=== PATIENT | female | born 1960 ===

== ENCOUNTER 2021-12-24 11:11 | Emergency (ER) | payer OTHER, SELFPAY ==
[2021-12-24] VITALS (9 sets, daily range): BP systolic 145–184; BP diastolic 69–89; PULSE 64–94; RESP 18–23; TEMP 36.8; O2SAT 97–99; BMI 22.6
--- NOTE | 2021-12-24 12:00 | DI.RAD.S_ITS ---
PROCEDURE: XR CHEST 1V INDICATIONS: chest pain TECHNIQUE: One view of the chest was acquired. COMPARISON: None. FINDINGS: Surgical changes and devices: None. Lungs and pleura: Lungs are clear. No pleural effusions or pneumothorax. Mediastinum: Mediastinal contours appear normal. Heart size is normal. Bones and chest wall: No suspicious bony lesions. Overlying soft tissues appear unremarkable. IMPRESSION: No acute cardiopulmonary abnormality. Dictated by: Gigi Nieto M.D. on 12/24/2021 at 13:15 Approved by: Gigi Nieto M.D. on 12/24/2021 at 13:16
--- NOTE | 2021-12-24 12:08 | ED.BACK ---
HPI - Back Pain/Injury <ESSIE Perez - Last Filed: 12/24/21 17:57> General Chief Complaint: Back Pain/Injury Stated Complaint: r sided pain Time Seen by Provider: 12/24/21 12:07 Source: patient History of Present Illness HPI Narrative: 61-year-old female presents to the emergency department complaining of right elbow pain, elevated blood pressure, and ongoing symptoms for since her COVID infection, and low abdominal pain over her bladder. Patient denies any nausea vomiting, fever, shortness of breath, wheezing, difficulty breathing, weakness, altered mental status, history of blood clots, headache, or other. She endorses feeling fatigued since her COVID infection. 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 The she states that she is having a hard time having the energy to complete her shift. She denies any sensation changes to her extremities, denies any wounds, denies dysuria, hematuria, abnormal bowel movements. Related Data Previous Rx's Medication Instructions Recorded ibuprofen 600 mg tablet 600 mg PO Q6H PRN #20 tab 12/24/21 methocarbamol 500 mg tablet 500 mg PO TID PRN #20 tab 12/24/21 nitrofurantoin 100 mg PO BID 5 Days #10 cap 12/24/21 monohydrate/macrocrystals 100 mg capsule (Macrobid) phenazopyridine 100 mg tablet 100 mg PO TID PRN #7 tab 12/24/21 (Pyridium) Allergies Allergy/AdvReac Type Severity Reaction Status Date / Time No Known Drug Allergies Allergy Verified 12/24/21 11:23 Review of Systems <ESSIE Perez - Last Filed: 12/24/21 17:57> Review of Systems Narrative: General: denies fever, chills, malaise, sweats, endorses having fatigue Head/Neck: denies headache, neck pain, dizziness Eyes: denies visual changes, eye pain Cardio: denies chest pain, palpitations, edema Respiratory: denies dyspnea, cough, orthopnea GI: Endorses lower abdominal pain, denies nausea, vomiting, or diarrhea : denies dysuria, hematuria, urinary retention, frequency or incontinence but does complain of lower abdominal pain over her bladder MSK: denies joint pain, muscle weakness Skin: denies rash, itching, skin lesions or other Neuro: denies numbness, tingling Patient History <ESSIE Perez - Last Filed: 12/24/21 17:57> Social History Smoking Status: Never smoker Smoking Status: Never smoker Substance Use Type: does not use Exam <ESSIE Perez - Last Filed: 12/24/21 17:57> Narrative Exam Narrative: Independently reviewed vitals signs and nursing notes. General: Cooperative, comfortable, in no acute distress, well developed and well groomed Head/Neck: Normal visual inspection and supple, atraumatic, no JVD or lymphadenopathy. Normal facial exam Eyes: Pupils equal round and reactive, EOMI, conjunctiva normal, no scleral icterus or injections Nose: External nose normal, nares patent, no rhinorrhea, without purulent drainage Mouth/Throat: uvula midline, moist mucus membranes Cardio: Regular rate and rhythm, no peripheral edema, warm extremities Respiratory: Normal respiratory effort, able to speak in complete sentences without audible wheezing, stridor, or rales. No retractions. GI: Abdomen soft, nontender to palpation x4 quadrants, nondistended, no masses or exquisite tenderness with exam, no flank tenderness MSK: Moves all extremities, neurovascularly intact, right arm with tenderness over the medial epicondyle, no local erythema, edema, discoloration Skin: Normal capillary refill, no rash Neuro: Normal speech and cognition, normal gait, A&O x3, tone normal, moves all extremities Psych: Mental status is grossly normal, speech is clear, congruent mood, normal affect Initial Vital Signs Initial Vital Signs: Vital Signs Temperature 98.2 F 12/24/21 11:23 Pulse Rate 94 H 12/24/21 11:23 Respiratory Rate 18 12/24/21 11:23 Blood Pressure 184/89 H 12/24/21 11:23 Pulse Oximetry 98 12/24/21 11:23 <Juan Smith DO - Last Filed: 12/24/21 18:01> Initial Vital Signs Initial Vital Signs: Vital Signs Temperature 98.2 F 12/24/21 11:23 Pulse Rate 94 H 12/24/21 11:23 Respiratory Rate 18 12/24/21 11:23 Blood Pressure 184/89 H 12/24/21 11:23 Pulse Oximetry 98 12/24/21 11:23 Course <ESSIE Perez - Last Filed: 12/24/21 17:57> Orders Ordered: ED Orders 12/24/21 11:00 UA Complete [Urinalysis and Microscopic] Stat Urine Culture Stat 12/24/21 11:30 EKG-12 Lead Stat 12/24/21 11:40 Complete Blood Count AUTO DIFF Stat Comprehensive Metabolic Panel Stat D Dimer Stat Lipase Stat Magnesium Stat Procalcitonin Stat Troponin & CK Cardiac Panel Stat 12/24/21 11:50 COVID19 -Nasal swab/Pre-Proc Stat 12/24/21 12:00 XR chest 1V Stat Discontinued Medications Sodium Chloride (Normal Saline 0.9%) 1,000 mls @ 1,000 mls/hr IV BOLUS ONE Stop: 12/24/21 13:40 Last Infusion: 12/24/21 14:41 Dose: 0 mls/hr Documented by: Admin: 12/24/21 13:23 Dose: 1,000 mls/hr Documented by: NORIS Ketorolac Tromethamine (Ketorolac 30 Mg/Ml Vial) 15 mg IV NOW ONE Stop: 12/24/21 13:58 Last Admin: 12/24/21 14:39 Dose: 15 mg Documented by: AVE Methocarbamol (Methocarbamol 500 Mg Tablet) 500 mg PO NOW ONE Stop: 12/24/21 13:58 Last Admin: 12/24/21 14:39 Dose: 500 mg Documented by: AVE Nitrofurantoin Macrocrystals (Nitrofurantoin Er 100 Mg Capsule) 100 mg PO NOW ONE Stop: 12/24/21 14:47 Last Admin: 12/24/21 14:51 Dose: 100 mg Documented by: SATHISH Phenazopyridine HCl (Phenazopyridine 100 Mg Tablet) 100 mg PO NOW ONE Stop: 12/24/21 14:47 Last Admin: 12/24/21 14:51 Dose: 100 mg Documented by: SATHISH Vital Signs Vital signs: Vital Signs - 8 hr 12/24/21 11:23 12/24/21 11:50 12/24/21 12:00 Temperature 98.2 F Pulse Rate 94 H 86 84 Respiratory Rate 18 20 19 Blood Pressure 184/89 H Pulse Oximetry 98 99 99 12/24/21 12:30 12/24/21 13:00 12/24/21 13:25 Temperature Pulse Rate 78 72 68 Respiratory Rate 22 20 18 Blood Pressure 145/80 H Pulse Oximetry 98 99 98 12/24/21 13:30 12/24/21 14:00 12/24/21 14:30 Temperature Pulse Rate 69 71 64 Respiratory Rate 21 23 20 Blood Pressure 159/69 H 171/86 H 172/83 H Pulse Oximetry 97 98 99 <Juan Smith DO - Last Filed: 12/24/21 18:01> Orders Ordered: ED Orders 12/24/21 11:00 UA Complete [Urinalysis and Microscopic] Stat Urine Culture Stat 12/24/21 11:30 EKG-12 Lead Stat 12/24/21 11:40 Complete Blood Count AUTO DIFF Stat Comprehensive Metabolic Panel Stat D Dimer Stat Lipase Stat Magnesium Stat Procalcitonin Stat Troponin & CK Cardiac Panel Stat 12/24/21 11:50 COVID19 -Nasal swab/Pre-Proc Stat 12/24/21 12:00 XR chest 1V Stat Discontinued Medications Sodium Chloride (Normal Saline 0.9%) 1,000 mls @ 1,000 mls/hr IV BOLUS ONE Stop: 12/24/21 13:40 Last Infusion: 12/24/21 14:41 Dose: 0 mls/hr Documented by: Admin: 12/24/21 13:23 Dose: 1,000 mls/hr Documented by: NORIS Ketorolac Tromethamine (Ketorolac 30 Mg/Ml Vial) 15 mg IV NOW ONE Stop: 12/24/21 13:58 Last Admin: 12/24/21 14:39 Dose: 15 mg Documented by: AVE Methocarbamol (Methocarbamol 500 Mg Tablet) 500 mg PO NOW ONE Stop: 12/24/21 13:58 Last Admin: 12/24/21 14:39 Dose: 500 mg Documented by: AVE Nitrofurantoin Macrocrystals (Nitrofurantoin Er 100 Mg Capsule) 100 mg PO NOW ONE Stop: 12/24/21 14:47 Last Admin: 12/24/21 14:51 Dose: 100 mg Documented by: SATHISH Phenazopyridine HCl (Phenazopyridine 100 Mg Tablet) 100 mg PO NOW ONE Stop: 12/24/21 14:47 Last Admin: 12/24/21 14:51 Dose: 100 mg Documented by: SATHISH Vital Signs Vital signs: Vital Signs - 8 hr 12/24/21 11:23 12/24/21 11:50 12/24/21 12:00 Temperature 98.2 F Pulse Rate 94 H 86 84 Respiratory Rate 18 20 19 Blood Pressure 184/89 H Pulse Oximetry 98 99 99 12/24/21 12:30 12/24/21 13:00 12/24/21 13:25 Temperature Pulse Rate 78 72 68 Respiratory Rate 22 20 18 Blood Pressure 145/80 H Pulse Oximetry 98 99 98 12/24/21 13:30 12/24/21 14:00 12/24/21 14:30 Temperature Pulse Rate 69 71 64 Respiratory Rate 21 23 20 Blood Pressure 159/69 H 171/86 H 172/83 H Pulse Oximetry 97 98 99 MDM - Back Pain/Injury <NIKKO ePrezP - Last Filed: 12/24/21 17:57> Lab Data Result diagrams: 12/24/21 11:40 12/24/21 11:40 Labs: Lab Results 12/24/21 12/24/21 12/24/21 Range/Units 11:00 11:40 11:40 WBC 6.7 (4.5-11.0) X10^3/uL RBC 4.56 (4.0-5.2) X10^6/uL Hgb 13.1 (12.0-16.0) g/dL Hct 39.5 (36-46) % MCV 86.5 (80-100) fL MCH 28.7 (26-34) PG MCHC 33.2 (30-36) % RDW 12.2 (11.6-14.8) % Plt Count 343 (150-400) X10^3/uL Neut % (Auto) 78.9 H (50-75) % Lymph % (Auto) 13.9 L (25-40) % Mcpherson % (Auto) 4.7 (3-14) % Eos % (Auto) 1.6 L (2-4) % Baso % (Auto) 0.9 (0-2) % Neut # (Auto) 5300 (1678-1041) /uL Lymph # (Auto) 900 L (2753-0686) /uL Mcpherson # (Auto) 300 (0-900) /uL Eos # (Auto) 100 (0-450) /uL Baso # (Auto) 100 (0-100) /uL D-Dimer (<230) ng/mL Sodium 136 L (137-145) mmol/L Potassium 4.0 (3.4-5.1) mmol/L Chloride 104 (98-107) mmol/L Carbon Dioxide 26 (22-32) mmol/L BUN 20 H (7-17) mg/dL Creatinine 0.54 (0.52-1.04) mg/dL Estimated GFR > 60.0 (>60) mL/min BUN/Creatinine Ratio 37.0 H (6-22) Glucose 170 H (80-110) mg/dL Calcium 9.5 (8.4-10.2) mg/dL Magnesium 1.6 (1.6-2.3) mg/dL Total Bilirubin 0.4 (0.2-1.3) mg/dL AST 42 H (14-36) IU/L ALT 26 (<35) IU/L Alkaline Phosphatase 59 (38-126) U/L Total Creatine Kinase 65 (30-135) U/L CK-MB (CK-2) TNP CK-MB (CK-2) Rel Index TNP Troponin I < 0.012 (0.01-0.034) ng/mL Total Protein 7.1 (6.3-8.2) g/dL Albumin 4.3 (3.5-5.0) g/dL Globulin 2.8 (1.7-4.1) g/dL Albumin/Globulin Ratio 1.5 (1.0-2.8) Lipase 44 (23-300) U/L Procalcitonin (<0.5) ng/mL Urine Color Yellow Urine Appearance Clear Urine pH 7.0 (4.5-8.0) Ur Specific [place] 1.010 (1.000-1.035) Urine Protein Negative (Negative) Urine Glucose (UA) Trace H (Negative) g/dL Urine Ketones Negative (NEGATIVE) Urine Occult Blood Negative (Negative) Urine Nitrate Negative (Negative) Urine Bilirubin Negative (NEGATIVE) Urine Urobilinogen 0.2 (0.2) E.U./dL Ur Leukocyte Esterase 1+ H (NEGATIVE) Urine RBC None seen (0-5/HPF) Urine WBC 1-5/hpf (0-5/HPF) Ur Squamous Epith Cells 0-1 /hpf (0-5/HPF) Urine Bacteria Few (2-10) H (None) Ur Culture Indicated? Specimen cultured SARS-CoV-2 (PCR) (Negative) 12/24/21 12/24/21 12/24/21 Range/Units 11:40 11:40 11:50 WBC (4.5-11.0) X10^3/uL RBC (4.0-5.2) X10^6/uL Hgb (12.0-16.0) g/dL Hct (36-46) % MCV (80-100) fL MCH (26-34) PG MCHC (30-36) % RDW (11.6-14.8) % Plt Count (150-400) X10^3/uL Neut % (Auto) (50-75) % Lymph % (Auto) (25-40) % Mcpherson % (Auto) (3-14) % Eos % (Auto) (2-4) % Baso % (Auto) (0-2) % Neut # (Auto) (6098-5786) /uL Lymph # (Auto) (3922-6701) /uL Mcpherson # (Auto) (0-900) /uL Eos # (Auto) (0-450) /uL Baso # (Auto) (0-100) /uL D-Dimer 238 H (<230) ng/mL Sodium (137-145) mmol/L Potassium (3.4-5.1) mmol/L Chloride (98-107) mmol/L Carbon Dioxide (22-32) mmol/L BUN (7-17) mg/dL Creatinine (0.52-1.04) mg/dL Estimated GFR (>60) mL/min BUN/Creatinine Ratio (6-22) Glucose (80-110) mg/dL Calcium (8.4-10.2) mg/dL Magnesium (1.6-2.3) mg/dL Total Bilirubin (0.2-1.3) mg/dL AST (14-36) IU/L ALT (<35) IU/L Alkaline Phosphatase (38-126) U/L Total Creatine Kinase (30-135) U/L CK-MB (CK-2) CK-MB (CK-2) Rel Index Troponin I (0.01-0.034) ng/mL Total Protein (6.3-8.2) g/dL Albumin (3.5-5.0) g/dL Globulin (1.7-4.1) g/dL Albumin/Globulin Ratio (1.0-2.8) Lipase (23-300) U/L Procalcitonin < 0.03 (<0.5) ng/mL Urine Color Urine Appearance Urine pH (4.5-8.0) Ur Specific [place] (1.000-1.035) Urine Protein (Negative) Urine Glucose (UA) (Negative) g/dL Urine Ketones (NEGATIVE) Urine Occult Blood (Negative) Urine Nitrate (Negative) Urine Bilirubin (NEGATIVE) Urine Urobilinogen (0.2) E.U./dL Ur Leukocyte Esterase (NEGATIVE) Urine RBC (0-5/HPF) Urine WBC (0-5/HPF) Ur Squamous Epith Cells (0-5/HPF) Urine Bacteria (None) Ur Culture Indicated? SARS-CoV-2 (PCR) Negative (Negative) Imaging Data Chest x-ray: Radiologist's Impression: PROCEDURE:? XR CHEST 1V ? INDICATIONS:? chest pain ? TECHNIQUE:? One view of the chest was acquired.? ? COMPARISON:? None. ? FINDINGS:? ? Surgical changes and devices:? None.? ? Lungs and pleura:? Lungs are clear.? No pleural effusions or pneumothorax.? ? Mediastinum:? Mediastinal contours appear normal.? Heart size is normal.? ? Bones and chest wall:? No suspicious bony lesions.? Overlying soft tissues appear unremarkable.? ? IMPRESSION:? No acute cardiopulmonary abnormality. ? ? Dictated by: Gigi Nieto M.D. on 12/24/2021 at 13:15 ? ? Approved by: Gigi Nieto M.D. on 12/24/2021 at 13:16 ? [facility] Narrative Medical decision making narrative: This is a 61-year-old female presents to the emergency department [place] [employer] after she went in for evaluation of her right elbow pain they checked her blood pressure and it was elevated in she was told to go to the emergency department. Patient states she used to be on antihypertensives in the past but she is no longer. She does not remember which medication was that she used to take because it has been many years. Patient also complains of ongoing fatigue since her COVID infection. Lab work overall was mostly unremarkable. Patient does not have a leukocytosis, D-dimer was just barely above baseline at 2:38 a.m. the patient endorses being slightly dehydrated. She was given 1 L of fluid which helped her symptom of fatigue. No like Tigist abnormalities, liver enzymes were grossly normal except mild elevation AST to 42, cardiac enzymes were negative, lipase 44, procalcitonin less than 0.03. UA obtained for patient's complaint of low abdominal pain showing 1+ leukocyte and few bacteria. Opted to treat her with nitrofurantoin because she has symptoms. Patient is otherwise well, afebrile, improved after 1 L of normal saline, methocarbamol and Toradol. EKG independently reviewed by Dr. Smith and reveals normal sinus rhythm at [79] bpm with regular axis and intervals. No STEMI, ST segment changes, arrhythmia, or acute ischemic changes. Encouraged patient to have close [place] and follow-up regarding her blood pressure. Patient understands this and will return to the emergency department if she has any worsening of her symptoms. She was encouraged to rest, treat her symptoms with NSAIDs, Tylenol, hydration and good nutrition. Patient is appropriate and amenable to discharge home. Vital signs are stable on repeat examination is unremarkable. Patient has been informed of results. Patient has been given strict return to ER precautions for any new or worsening symptoms. Patient understands to follow up closely with outpatient providers as instructed. Patient understands plan and agrees to discharge home. All questions and concerns answered at this time. <Juan Smith, DO - Last Filed: 12/24/21 18:01> Lab Data Labs: Lab Results 12/24/21 12/24/21 12/24/21 Range/Units 11:00 11:40 11:40 WBC 6.7 (4.5-11.0) X10^3/uL RBC 4.56 (4.0-5.2) X10^6/uL Hgb 13.1 (12.0-16.0) g/dL Hct 39.5 (36-46) % MCV 86.5 (80-100) fL MCH 28.7 (26-34) PG MCHC 33.2 (30-36) % RDW 12.2 (11.6-14.8) % Plt Count 343 (150-400) X10^3/uL Neut % (Auto) 78.9 H (50-75) % Lymph % (Auto) 13.9 L (25-40) % Mcpherson % (Auto) 4.7 (3-14) % Eos % (Auto) 1.6 L (2-4) % Baso % (Auto) 0.9 (0-2) % Neut # (Auto) 5300 (0271-0822) /uL Lymph # (Auto) 900 L (7980-7308) /uL Mcpherson # (Auto) 300 (0-900) /uL Eos # (Auto) 100 (0-450) /uL Baso # (Auto) 100 (0-100) /uL D-Dimer (<230) ng/mL Sodium 136 L (137-145) mmol/L Potassium 4.0 (3.4-5.1) mmol/L Chloride 104 (98-107) mmol/L Carbon Dioxide 26 (22-32) mmol/L BUN 20 H (7-17) mg/dL Creatinine 0.54 (0.52-1.04) mg/dL Estimated GFR > 60.0 (>60) mL/min BUN/Creatinine Ratio 37.0 H (6-22) Glucose 170 H (80-110) mg/dL Calcium 9.5 (8.4-10.2) mg/dL Magnesium 1.6 (1.6-2.3) mg/dL Total Bilirubin 0.4 (0.2-1.3) mg/dL AST 42 H (14-36) IU/L ALT 26 (<35) IU/L Alkaline Phosphatase 59 (38-126) U/L Total Creatine Kinase 65 (30-135) U/L CK-MB (CK-2) TNP CK-MB (CK-2) Rel Index TNP Troponin I < 0.012 (0.01-0.034) ng/mL Total Protein 7.1 (6.3-8.2) g/dL Albumin 4.3 (3.5-5.0) g/dL Globulin 2.8 (1.7-4.1) g/dL Albumin/Globulin Ratio 1.5 (1.0-2.8) Lipase 44 (23-300) U/L Procalcitonin (<0.5) ng/mL Urine Color Yellow Urine Appearance Clear Urine pH 7.0 (4.5-8.0) Ur Specific [place] 1.010 (1.000-1.035) Urine Protein Negative (Negative) Urine Glucose (UA) Trace H (Negative) g/dL Urine Ketones Negative (NEGATIVE) Urine Occult Blood Negative (Negative) Urine Nitrate Negative (Negative) Urine Bilirubin Negative (NEGATIVE) Urine Urobilinogen 0.2 (0.2) E.U./dL Ur Leukocyte Esterase 1+ H (NEGATIVE) Urine RBC None seen (0-5/HPF) Urine WBC 1-5/hpf (0-5/HPF) Ur Squamous Epith Cells 0-1 /hpf (0-5/HPF) Urine Bacteria Few (2-10) H (None) Ur Culture Indicated? Specimen cultured SARS-CoV-2 (PCR) (Negative) 12/24/21 12/24/21 12/24/21 Range/Units 11:40 11:40 11:50 WBC (4.5-11.0) X10^3/uL RBC (4.0-5.2) X10^6/uL Hgb (12.0-16.0) g/dL Hct (36-46) % MCV (80-100) fL MCH (26-34) PG MCHC (30-36) % RDW (11.6-14.8) % Plt Count (150-400) X10^3/uL Neut % (Auto) (50-75) % Lymph % (Auto) (25-40) % Mcpherson % (Auto) (3-14) % Eos % (Auto) (2-4) % Baso % (Auto) (0-2) % Neut # (Auto) (5260-6675) /uL Lymph # (Auto) (8501-2686) /uL Mcpherson # (Auto) (0-900) /uL Eos # (Auto) (0-450) /uL Baso # (Auto) (0-100) /uL D-Dimer 238 H (<230) ng/mL Sodium (137-145) mmol/L Potassium (3.4-5.1) mmol/L Chloride (98-107) mmol/L Carbon Dioxide (22-32) mmol/L BUN (7-17) mg/dL Creatinine (0.52-1.04) mg/dL Estimated GFR (>60) mL/min BUN/Creatinine Ratio (6-22) Glucose (80-110) mg/dL Calcium (8.4-10.2) mg/dL Magnesium (1.6-2.3) mg/dL Total Bilirubin (0.2-1.3) mg/dL AST (14-36) IU/L ALT (<35) IU/L Alkaline Phosphatase (38-126) U/L Total Creatine Kinase (30-135) U/L CK-MB (CK-2) CK-MB (CK-2) Rel Index Troponin I (0.01-0.034) ng/mL Total Protein (6.3-8.2) g/dL Albumin (3.5-5.0) g/dL Globulin (1.7-4.1) g/dL Albumin/Globulin Ratio (1.0-2.8) Lipase (23-300) U/L Procalcitonin < 0.03 (<0.5) ng/mL Urine Color Urine Appearance Urine pH (4.5-8.0) Ur Specific [place] (1.000-1.035) Urine Protein (Negative) Urine Glucose (UA) (Negative) g/dL Urine Ketones (NEGATIVE) Urine Occult Blood (Negative) Urine Nitrate (Negative) Urine Bilirubin (NEGATIVE) Urine Urobilinogen (0.2) E.U./dL Ur Leukocyte Esterase (NEGATIVE) Urine RBC (0-5/HPF) Urine WBC (0-5/HPF) Ur Squamous Epith Cells (0-5/HPF) Urine Bacteria (None) Ur Culture Indicated? SARS-CoV-2 (PCR) Negative (Negative) Discharge Plan Departure Patient Disposition: Home Clinical Impression: Post-COVID syndrome UTI (urinary tract infection) Qualifiers: Urinary tract infection type: acute cystitis Hematuria presence: without hematuria Qualified Code(s): N30.00 - Acute cystitis without hematuria Epicondylitis elbow, medial Qualifiers: Laterality: right Qualified Code(s): M77.01 - Medial epicondylitis, right elbow Instructions: Medial Epicondylitis, Acute Cystitis, Chronic Fatigue Syndrome Activity Restrictions/Additional Instructions: *You have been diagnosed with a bladder infection and post-covid fatigue syndrome. [place] to evaluate how your symptoms have improved or worsened. If your symptoms only worsen, please return to the emergency department for another evaluation. We did not find any dangerous causes to your pain symptoms today. Please try stay hydrated any food. You may take ibuprofen every 6-8 hours starting tomorrow for your right elbow pain. Please limit the use of it to help the pain improve. May use an Raul wrap to wrap it if that is helpful. Ice, rest and Tylenol will help you feel better as well. *What to do: *Please continue to take your regular medications as directed. [ x] New medication prescriptions sent to your pharmacy: [[facility]] [ ] New medication written as a paper prescription [ ] No new medications given *Please follow up with your primary care provider in 2-3 days, call for an appointment. Let them know you were seen in the Emergency Department and that we ask that you be seen in follow up. We will electronically transmit a record of today's note if your PCP is in our system *If you do not have a primary care provider please contact the [facility] Resource line at [phone]. They will ask some questions about your medical history and help get you set up with a doctor in the community. *Return to Emergency Department if you should have any new, worsening or concerning symptoms, such as [fever greater than 101F, chills, worsening pain, persistent vomiting or other bothersome symptoms] Prescriptions: New nitrofurantoin monohyd/m-cryst [Macrobid] 100 mg capsule 100 mg PO BID 5 Days Qty: 10 0RF Rx Instructions: must administer with a meal/food methocarbamol 500 mg tablet 500 mg PO TID PRN (Reason: muscle pain) Qty: 20 0RF phenazopyridine [Pyridium] 100 mg tablet 100 mg PO TID PRN (Reason: pain) Qty: 7 0RF ibuprofen 600 mg tablet 600 mg PO Q6H PRN (Reason: pain) Qty: 20 0RF Stand Alone Forms: Work Release Note <Juan Smith, DO - Last Filed: 12/24/21 18:01> Cosign ED Attending Cosignature Attestation: Dr Smith Co-Sign Statement: I was available for consultation during this patient's emergency department visit. This chart is signed by myself for administrative purposes only. I did not have direct contact with this patient during this visit. They were seen independently by the [facility].
[2021-12-24 12:34] LABS: COVID19 -Nasal RAPID Negative (Negative)
[2021-12-24 12:54] LABS: Add Manual Diff / Slide Review NO; Basophils Absolute Auto 100 /uL (0-100); Basophils Percent Auto 0.9 % (0-2); Eosinophils Absolute Auto 100 /uL (0-450); Eosinophils Percent Auto 1.6 % (2-4); Hematocrit 39.5 % (36-46); Hemoglobin 13.1 g/dL (12.0-16.0); Lymphocytes Absolute Auto 900 /uL (1100-4500); Lymphocytes Percent Auto 13.9 % (25-40); Mean Corpuscular HGB Conc 33.2 % (30-36); Mean Corpuscular Hemoglobin 28.7 PG (26-34); Mean Corpuscular Volume 86.5 fL (80-100); Monocytes Absolute Auto 300 /uL (0-900); Monocytes Percent Auto 4.7 % (3-14); Neutrophils Absolute Auto 5300 /uL (1500-7000); Neutrophils Percent Auto 78.9 % (50-75); Platelet Count 343 X10^3/uL (150-400); Red Blood Cell Count 4.56 X10^6/uL (4.0-5.2); Red Cell Distribution Width 12.2 % (11.6-14.8); White Blood Cell Count 6.7 X10^3/uL (4.5-11.0)
[2021-12-24 12:56] LABS: Appearance Urine UA CLEAR; Bilirubin Urine UA NEGATIVE (NEGATIVE); Color Urine UA YELLOW; Glucose Urine UA TRACE g/dL (Negative); Ketones Urine UA NEGATIVE (NEGATIVE); Leukocyte Esterase Urine UA 1+ (NEGATIVE); Nitrite Urine UA NEGATIVE (Negative); Occult Blood Urine UA NEGATIVE (Negative); Protein Urine UA NEGATIVE (Negative); Urobilinogen Urine UA 0.2 E.U./dL (0.2)
[2021-12-24 12:59] LABS: D Dimer 238 ng/mL (<230)
[2021-12-24 13:02] LABS: Alanine Aminotransferase 26 IU/L (<35); Albumin 4.3 g/dL (3.5-5.0); Albumin Globulin Ratio 1.5 (1.0-2.8); Alkaline Phosphatase 59 U/L (38-126); Aspartate Aminotransferase 42 IU/L (14-36); Bilirubin Total 0.4 mg/dL (0.2-1.3); Blood Urea Nitrogen 20 mg/dL (7-17); Calcium 9.5 mg/dL (8.4-10.2); Carbon Dioxide 26 mmol/L (22-32); Chloride 104 mmol/L (98-107); Creatine Kinase 65 U/L (30-135); Estimated Glomerular Filt Rate > 60.0 mL/min (>60); Globulin 2.8 g/dL (1.7-4.1); Glucose 170 mg/dL (80-110); HEMOLYSIS 17 (0-50); Lipase 44 U/L (23-300); Magnesium 1.6 mg/dL (1.6-2.3); Sodium 136 mmol/L (137-145); Total Protein 7.1 g/dL (6.3-8.2)
[2021-12-24 13:12] LABS: Troponin I < 0.012 ng/mL (0.01-0.034)
[2021-12-24] MEDS: SODIUM CHLORIDE 0.9% 1,000 ML 1000 ML IV (13:23)
[2021-12-24 13:28] LABS: Bacteria Urine Few (2-10); Culture Indicated Urine Specimen Cultured; RBC Urine None Seen (0-5/HPF); Squamous Epithelial Cell Urine 0-1 /HPF (0-5/HPF); WBC Urine 1-5/HPF (0-5/HPF)
[2021-12-24 13:42] LABS: Procalcitonin < 0.03 ng/mL (<0.5)
[2021-12-24] MEDS: methocarbamoL 500 MG TABLET PO (14:39)
[2021-12-24] MEDS: KETOROLAC 30 MG/ML VIAL 15 MG IV (14:39)
[2021-12-24] MEDS: PHENAZOPYRIDINE 100 MG TABLET PO (14:51)
[2021-12-24] MEDS: NITROFURANTOIN ER 100 MG CAPSULE PO (14:51)
== END 2021-12-24 15:04 | disposition home or self-care (01) ==
PROVIDERS: Emergency Medicine; Emergency Provider Nurse Practitioner Critical Care Medicine
DX: R53.83 Other fatigue (principal); U09.9 Post COVID-19 condition, unspecified; N30.00 Acute cystitis without hematuria; M77.01 Medial epicondylitis, right elbow; Z20.822 Contact with and (suspected) exposure to COVID-19
CPT/HCPCS: 71045; 80053; 81001; 82550; 83690; 83735; 84145; 84484; 85025; 85379; 87086; 87147; 87635; 93005; 96361; 96374; 99284; C9803; J1885